=== PATIENT | female | born 1980 | race Caucasian/White ===

== ENCOUNTER 2017-07-09 12:55 | Emergency (ER) | payer OTHER ==
[2017-07-09 13:03] VITALS: BP 129/89; PULSE 80; TEMP 98.6; BMI 23.8
[2017-07-09] MEDS ORDERED: IBUPROFEN 400 MG TABLET (FP) PO ONE ×2 (13:12→13:22)
--- NOTE | 2017-07-09 13:18 | PDOC ---
History of Present Illness - General Chief Complaint: Injury Stated Complaint: RIGHT FOOT PAIN Time Seen by Provider: 07/09/17 13:04 History Source: Patient Exam Limitations: No Limitations - History of Present Illness Initial Comments: 07/09/17 13:13 37y F no pmhx present with complaint of R foot pain. pt states on saturday, she stubbed her toe walking into furniture. She denies falling, or any other injuries. She noted some mild pain there on saturday and saturday, but worsened alot onsaturday especially as she was walking around and was putting on her shoe. She takes motrin with mild improvement. Pt notes her pain is worse in the 5th toe and radiates proximally to the mid foot. Pt notes edema there sat/sun, but has since resolved no associated numbness/tingling/weakness. no knee pain or ankle pain. Past History - Past Medical History Allergies/Adverse Reactions: Allergies Allergy/AdvReac Type Severity Reaction Status Date / Time No Known Drug Allergies Allergy Verified 07/09/17 12:57 Home Medications: Ambulatory Orders NK [No Known Home Medication] 12/25/15 Anemia: No Asthma: No Cancer: No Cardiac Disorders: No CVA: No COPD: No CHF: No Dementia: No Diabetes: No GI Disorders: No Disorders: No HTN: No Hypercholesterolemia: No Liver Disease: No Seizures: No Thyroid Disease: No - Surgical History Abdominal Surgery: Yes (LIPOSUCTION) Appendectomy: No Cardiac Surgery: No Cholecystectomy: No Lung Surgery: No Neurologic Surgery: No Orthopedic Surgery: No - Suicide/Smoking/Psychosocial Hx Smoking History: Current some day smoker Have you smoked in the past 12 months: Yes Number of Cigarettes Smoked Daily: 1 Information on smoking cessation initiated: Yes 'Breaking Loose' booklet given: 07/09/17 Hx Alcohol Use: (occasional) Drug/Substance Use Hx: No Substance Use Type: None Hx Substance Use Treatment: No Review of Systems - Review of Systems Able to Perform ROS?: Yes Comments:: 07/09/17 13:15 Musculskelatal - +R foot pain no reported back pain, joint swelling skin - no reported bruising, erythema, rash neurological: no reported numbness, focal weakness, tingling, hematologic: no reported anemia, easy bruising, easy bleeding *Physical Exam - Vital Signs Last Vital Signs Temp Pulse Resp BP Pulse Ox 98.6 F 80 16 129/89 99 07/09/17 12:55 07/09/17 12:55 07/09/17 12:55 07/09/17 12:55 07/09/17 12:55 - Physical Exam Comments: 07/09/17 13:16 GENERAL: The patient is awake, alert, and fully oriented, Nontoxic - in no acute distress. EXTREMITIES: R foot exam: , mild tenderness at 4th-5th prox phalynx, no signficant edema/induration, no bruising noted, sensation intact distally, cap refill <2 sec SKIN: no brusing ntoed, Warm, Dry, normal turgor, Medical Decision Making - Medical Decision Making 07/09/17 13:18 will ro fx with xray will give motrin 07/09/17 14:23 pt with fracture of the 5th prox phalynx 07/09/17 15:[address] hanley agree with hard sole shoe and fu within 1 week *DC/Admit/Observation/Transfer Diagnosis at time of Disposition: Foot fracture, right Qualifiers: Encounter type: initial encounter Fracture type: closed Qualified Code(s): S92.901A - Unspecified fracture of right foot, initial encounter for closed fracture - Discharge Dispostion Disposition: HOME Condition at time of disposition: Stable Admit: No - Referrals Referrals: Gaston Mckeon MD [Staff Physician] - - Patient Instructions Printed Discharge Instructions: DI for Foot Fracture Additional Instructions: Return to the emergency department immediately with ANY new, persistent or worsening symptoms. Take ibuprofen or Tylenol as needed for the pain. Wear the hard soled shoe. Minimize any ambulation to improve healing and minimize pain. You MUST call and follow up with orthopedics within 1 week for further evaluation of your symptoms. Results were discussed with you. Please make sure your doctor reviews the results of your emergency evaluation. Print Language: SETS[place] - Post Discharge Activity
== END 2017-07-09 15:38 | disposition home or self-care (01) ==
LOC: FER 12:55
DX: S92.514A Nondisplaced fracture of proximal phalanx of right lesser toe(s), initial encounter for closed fracture (principal); W22.01XA Walked into wall, initial encounter; Y93.89 Activity, other specified; Y92.9 Unspecified place or not applicable; F17.210 Nicotine dependence, cigarettes, uncomplicated
CPT/HCPCS: 73630-TC-RT-FY; 99282-25

== ENCOUNTER 2017-08-14 23:31 | Emergency (ER) | payer OTHER ==
[2017-08-14 23:36] VITALS: BP 129/89; PULSE 88; TEMP 98.2; BMI 22.3
--- NOTE | 2017-08-15 00:06 | PDOC ---
History of Present Illness - General Chief Complaint: Vaginal Bleeding Stated Complaint: VAG BLEED Time Seen by Provider: 08/14/17 23:37 - History of Present Illness Initial Comments: This 37-year-old woman with a history of 1 previous spontaneous and 3 living children presents with LMP 07/04/17 . Patient has had 2 at home urine tests that have been positive (first 2 weeks ago and the second today). She has a one-day history of vaginal bleeding with mild to moderate cramping. She has noticed light bleeding that has been persistent during this time without clots or tissue being passed. She has not had any fever/chills, nausea/vomiting. No history of ectopic pregnancies. No recent acute febrile illnesses Past History - Past Medical History Allergies/Adverse Reactions: Allergies Allergy/AdvReac Type Severity Reaction Status Date / Time No Known Drug Allergies Allergy Verified 07/09/17 12:57 Home Medications: Ambulatory Orders NK [No Known Home Medication] 12/25/15 Anemia: No Asthma: No Cancer: No Cardiac Disorders: No CVA: No COPD: No CHF: No Dementia: No Diabetes: No GI Disorders: No Disorders: No HTN: No Hypercholesterolemia: No Liver Disease: No Seizures: No Thyroid Disease: No - Surgical History Abdominal Surgery: Yes (LIPOSUCTION) Appendectomy: No Cardiac Surgery: No Cholecystectomy: No Lung Surgery: No Neurologic Surgery: No Orthopedic Surgery: No - Suicide/Smoking/Psychosocial Hx Smoking History: Unknown if ever smoked Have you smoked in the past 12 months: Yes Number of Cigarettes Smoked Daily: 5 Information on smoking cessation initiated: Yes 'Breaking Loose' booklet given: 07/09/17 Hx Alcohol Use: No Drug/Substance Use Hx: No Substance Use Type: None Hx Substance Use Treatment: No Review of Systems - Review of Systems Able to Perform ROS?: Yes Comments:: 12 point review of systems is negative except for what is noted in the history of present illness *Physical Exam - Vital Signs Last Vital Signs Temp Pulse Resp BP Pulse Ox 98.2 F 88 14 129/89 99 08/14/17 23:32 08/14/17 23:32 08/14/17 23:32 08/14/17 23:32 08/14/17 23:32 - Physical Exam Comments: GENERAL: Adult female, alert and oriented 3, in no acute distress HEAD: Normal with no signs of trauma. EYES: PERRLA, EOMI, sclera anicteric, conjunctiva clear. ENT: Ears normal, nares patent, oropharynx clear without exudates. Dry mucous membranes. NECK: Normal range of motion, supple without lymphadenopathy, JVD, or masses. LUNGS: Breath sounds equal, clear to auscultation bilaterally. No wheezes, and no crackles. HEART:Regular rate and rhythm, normal S1 and S2 without murmur, rub or gallop. ABDOMEN:.normal bowel sounds mild generalized lower abdominal tenderness without guarding or rebound.No masses No distention. EXTREMITIES: Normal range of motion, no edema. No clubbing or cyanosis. No erythema, or tenderness. NEUROLOGICAL: Cranial nerves II through XII grossly intact. Normal speech. No focal neurological deficits. MUSCULOSKELETAL: Back non-tender to palpation, no CVA tenderness SKIN: Warm, Dry, normal turgor, no rashes or lesions noted. Progress Note - Progress Note Progress Note: PGU is negative Ultrasound performed which showed no IUP visualized; there is small complex left ovarian cyst without torsion or free fluid. Results discussed with the patient and her . Since the is so early, it is hard to visualize intrauterine by ultrasound at this stage. However, because our PGU is negative, it suggests that this is a threatened . She should follow-up with her styrene dehydration reactor operator tomorrow. She should return to the ER if she has severe bleeding, cramping or lightheadedness *DC/Admit/Observation/Transfer Diagnosis at time of Disposition: Threatened in early - Discharge Dispostion Disposition: HOME Condition at time of disposition: Stable - Referrals - Patient Instructions Printed Discharge Instructions: Threatened Additional Instructions: Follow-up with your styrene dehydration reactor operator tomorrow as discussed Return to ER if you have severe pain, lightheadedness or excessive bleeding - Post Discharge Activity
== END 2017-08-15 02:30 | disposition home or self-care (01) ==
LOC: FER 23:31
DX: O26.899 Other specified pregnancy related conditions, unspecified trimester (principal); Z3A.00 Weeks of gestation of pregnancy not specified; O20.0 Threatened abortion
CPT/HCPCS: 76801-TC; 84703; 99283-25

== ENCOUNTER 2017-11-17 01:33 | Emergency (ER) | payer OTHER ==
--- NOTE | 2017-11-17 02:58 | PDOC ---
Attending Attestation - Resident Resident Name: Juan Worley - ED Attending Attestation I have performed the following: I have examined & evaluated the patient, The case was reviewed & discussed with the resident, I agree w/resident's findings & plan, Exceptions are as noted - HPI HPI: 11/18/17 01:00 Ms Saenz presents to the ER for evaluation of laceration She was at a birthday democr[employer] when she accidentally cut her leg on broken glass No other injuries sustained this evening No other complaint of pain Pt has glass in her leg upon arrival to the ER - Physicial Exam PE: 11/17/17 03:11 General Appearance: Nourished. No Apparent Distress Musculoskeletal: No extremity deformities Extremity: 1cm laceration to the medial aspect of the right calf. 2cm laceration with 2 cm deep piece of glass to the medial aspect of the right distal calf. 2+ DP pulses bilaterally. Normal Capillary Refill Integumentary: see above Neurologic: Pt resting on stretcher, moves all extremities - Medical Decision Making 11/18/17 01:02 37 yo F presenting to the ER s/p laceration with glass Foreign body removed Xray does not demonstrate radioopaque foreign body Wound irrigated by Dr Worley Wound loosely re approximated Tetanus UTD Augmentin ordered (pt has no h/o dm, pvd) Follow up for suture removal or signs of infection
[2017-11-17 03:06] VITALS: BMI 25.7
--- NOTE | 2017-11-17 03:13 | PDOC ---
History of Present Illness - General Stated Complaint: CUT ON THE FOOT Time Seen by Provider: 11/17/17 02:21 - History of Present Illness Initial Comments: 11/17/17 03:09 The patient is a 37 year old female with no significant PMH who presents for evaluation of a laceration to her right leg. 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 She denies any other injuries and otherwise denies fevers, chills, SOB, chest pain, nausea, vomiting , or changes with urination or bowel movements. Past History - Past Medical History Allergies/Adverse Reactions: Allergies Allergy/AdvReac Type Severity Reaction Status Date / Time No Known Drug Allergies Allergy Verified 11/17/17 03:05 Home Medications: Ambulatory Orders Amox-Tr/K Cl [Augmentin - 875Mg Tablet] 1 tab PO BID #14 tablet 11/17/17 Anemia: No Asthma: No Cancer: No Cardiac Disorders: No CVA: No COPD: No CHF: No Dementia: No Diabetes: No GI Disorders: No Disorders: No HTN: No Hypercholesterolemia: No Liver Disease: No Seizures: No Thyroid Disease: No - Surgical History Abdominal Surgery: Yes (LIPOSUCTION) Appendectomy: No Cardiac Surgery: No Cholecystectomy: No Lung Surgery: No Neurologic Surgery: No Orthopedic Surgery: No - Suicide/Smoking/Psychosocial Hx Smoking History: Current every day smoker Have you smoked in the past 12 months: Yes Number of Cigarettes Smoked Daily: 10 Information on smoking cessation initiated: No 'Breaking Loose' booklet given: 07/09/17 Hx Alcohol Use: No Drug/Substance Use Hx: No Substance Use Type: None Hx Substance Use Treatment: No Review of Systems - Review of Systems Comments:: 11/17/17 03:11 Constitutional: No fevers, chills, fatigue, malaise HEENT: No Rhinorrhea, nasal congestion, visual changes Cardiovascular: No chest pain, syncope, palpitations, lightheadedness Respiratory: No Cough, SOB, Hemoptysis, Gastrointestinal: No Abdominal pain, Nausea, Vomiting, Constipation, Diarrhea, Melena Genitourinary: No Dysuria, Frequency, Urgency, Hesitancy, Hematuria, Flank pain Musculoskeletal: No Myalgia, arthralgia Skin: Laceration to the right lower extremity. No rashes, itching, bruising, pallor Neurologic: No Headache, Dizziness, Numbness, Weakness, or Tingling Psychiatric: No Hallucinations. No SI or HI *Physical Exam - Vital Signs Last Vital Signs Temp Pulse Resp BP Pulse Ox 98.1 F 88 20 146/72 97 11/17/17 01:45 11/17/17 01:45 11/17/17 01:45 11/17/17 01:45 11/17/17 01:45 - Physical Exam Comments: 11/17/17 03:11 General Appearance: Nourished. No Apparent Distress HEENT: EOMI, BRUNILDA. No Pharyngeal Erythema, Tonsillar Exudate, Tonsillar Erythema Neck: No Cervical Lymphadenopathy Respiratory/Chest: Lungs Clear, Normal Breath Sounds. No Crackles, Rales, Rhonchi, Wheezing Cardiovascular: Regular Rhythm, Regular Rate. No Murmur, Gallops, Rubs Gastrointestinal/Abdominal: Normal Bowel Sounds, Soft. No Guarding, Rebound, Tenderness Musculoskeletal: No CVA Tenderness Extremity: 1cm laceration to the medial aspect of the right calf. 2cm laceration with 2 cm deep piece of glass to the medial aspect of the right distal calf. 2+ DP pulses bilaterally. Normal Capillary Refill Integumentary: Normal Color, Dry, Warm Neurologic: Fully Oriented, Alert, Normal Mood/Affect, Normal Response, Procedures - Laceration/Wound Repair Right Distal Leg Wound Length: to 2.5 cm Wound Explored: clean, no foreign body present Wound's Depth, Shape: superficial, linear Irrigated w/ Saline: Yes Anesthesia: 1% Lidocaine Amount of Anesthetic (ccs): 3 Wound Repaired With: Sutures Suture Size/Type: 4:0, nylon Number of Sutures: 3 Layer Closure: Yes Sterile Dressing Applied: Yes Right Medial Distal Leg Wound Length: to 2.5 cm Wound Explored: foreign body removed Wound's Depth, Shape: superficial, linear Irrigated w/ Saline: Yes Anesthesia: 1% Lidocaine Amount of Anesthetic (ccs): 3 Wound Repaired With: Sutures Suture Size/Type: 4:0, nylon Number of Sutures: 2 Layer Closure: Yes Sterile Dressing Applied: Yes ED Treatment Course - RADIOLOGY Radiology Studies Ordered: Category Date Time Status ANKLE-RIGHT [RAD] Stat Radiology 11/17/17 02:36 Ordered LEG TIB/FIB-RIGHT [RAD] Stat Radiology 11/17/17 02:36 Ordered Medical Decision Making - Medical Decision Making 11/17/17 03:16 The patient is a 37 year old female with no significant PMH who presents for evaluation of a laceration to her right leg. Given the patient's physical exam and history, we will obtain plain films of the patient's lower extremity to evaluate further. The patient's tetanus status is up to date. We sutured the patient's lacerations with 4-0 nylon sutures. Plain films of the patient's leg were unremarkable. We are comfortable discharging the patient home at this time on augmentin and with primary care provider follow up. We discussed proper wound care, the plan, and return precautions with the patient who voiced understanding and is agreeable with the plan. *DC/Admit/Observation/Transfer Diagnosis at time of Disposition: Laceration of lower leg Qualifiers: Encounter type: initial encounter Laterality: right Qualified Code(s): S81.811A - Laceration without foreign body, right lower leg, initial encounter - Discharge Dispostion Disposition: HOME Condition at time of disposition: Stable Decision to Admit order: No - Prescriptions Prescriptions: Amox-Tr/K Cl [Augmentin - 875Mg Tablet] 1 tab PO BID #14 tablet - Referrals Referrals: Deuce Sood [Primary Care Provider] - - Patient Instructions Printed Discharge Instructions: DI for Laceration Repair Additional Instructions: Please return to the ER if you experience concerning or worsening symptoms including worsening pain, fevers, or redness to the area. You had 2 lacerations that were repaired here in the ER. One was repaired with 3 stitches and the other with 2 stitches. You will need to return to the ER or your primary care provider in 7-10 days to have your wound checked and the sutures removed. We have sent a prescription for antibiotics to your pharmacy that you will need to take twice a day for 7 days to help prevent infection. Please make sure you call to schedule a follow up appointment with your primary care provider within 2-3 days to discuss your ER visit and further management of your symptoms. - Post Discharge Activity
[2017-11-17 04:10] VITALS: BP 123/75; PULSE 76; TEMP 98.2
== END 2017-11-17 04:05 | disposition home or self-care (01) ==
LOC: JER 01:33
PROC: 0HCKXZZ Extirpation of Matter from Right Lower Leg Skin, External Approach (ICD-10-PCS; principal; 2017-11-17)
PROC: 0JQN0ZZ Repair Right Lower Leg Subcutaneous Tissue and Fascia, Open Approach (ICD-10-PCS; 2017-11-17)
DX: S81.821A Laceration with foreign body, right lower leg, initial encounter (principal); W25.XXXA Contact with sharp glass, initial encounter; W45.8XXA Other foreign body or object entering through skin, initial encounter; Y93.89 Activity, other specified; Y92.89 Other specified places as the place of occurrence of the external cause; Y99.8 Other external cause status
CPT/HCPCS: 10120-25; 12001; 73590-TC-RT-FY; 73610-TC-RT-FY; 99281-25

== ENCOUNTER 2017-11-28 19:14 | Emergency (ER) | payer OTHER ==
[2017-11-28 19:22] VITALS: BP 119/67; PULSE 92; TEMP 98.2; BMI 22.3
--- NOTE | 2017-11-28 19:23 | PDOC ---
Rapid Medical Evaluation Time Seen by Provider: 11/28/17 19:20 Medical Evaluation: Allergies Allergy/AdvReac Type Severity Reaction Status Date / Time No Known Drug Allergies Allergy Verified 11/17/17 03:05 11/28/17 19:21 I have performed a brief in-person evaluation of this patient. The patient presents with a chief complaint of: suture removal Pertinent physical exam findings: RLE sutures erythematous. No drainage present. Pt given Rx for Augmentin which she did not take. I have ordered the following: nothing The patient will proceed to the ED for further evaluation. Discharge Disposition - Diagnosis Visit for suture removal - Referrals - Patient Instructions - Post Discharge Activity
--- NOTE | 2017-11-28 20:17 | PDOC ---
Suture Removal/Wound Check HPI - History of Present Illness Chief Complaint: Suture/Staple Removal(Here) Stated Complaint: STITCHES REMOVAL Time Seen by Provider: 11/28/17 19:20 History Source: Yes: Patient Exam Limitations: Yes: No Limitations Treated at: [facility] ED Date of Last ED visit: 11/17/17 - Previous ED Treatment Type of procedure performed on last visit: Yes: Laceration Repair Tetanus Immunization: Yes: Up to Date Antibiotics Prescribed: No - Onset of Previous Treatment Timing/Duration/Severity of Onset: reports: Prior to presentation Past History - Past Medical History Allergies/Adverse Reactions: Allergies Allergy/AdvReac Type Severity Reaction Status Date / Time No Known Drug Allergies Allergy Verified 11/28/17 19:22 Home Medications: Ambulatory Orders NK [No Known Home Medication] 11/28/17 Anemia: No Asthma: No Cancer: No Cardiac Disorders: No CVA: No COPD: No CHF: No Dementia: No Diabetes: No GI Disorders: No Disorders: No HTN: No Hypercholesterolemia: No Liver Disease: No Seizures: No Thyroid Disease: No - Surgical History Abdominal Surgery: Yes (LIPOSUCTION) Appendectomy: No Cardiac Surgery: No Cholecystectomy: No Lung Surgery: No Neurologic Surgery: No Orthopedic Surgery: No - Suicide/Smoking/Psychosocial Hx Smoking History: Current some day smoker Have you smoked in the past 12 months: Yes Number of Cigarettes Smoked Daily: 10 Information on smoking cessation initiated: Yes 'Breaking Loose' booklet given: 07/09/17 Hx Alcohol Use: No Drug/Substance Use Hx: No Substance Use Type: None Hx Substance Use Treatment: No Patient Lives Alone: No Lives with/in: spouse/SO Suture Removal/Wound Check PE - Physical Exam Laceration/Wound Check Symptoms: reports: Redness, Discharge Current Severity Level: None Maximum Severity Level: None Pain Localization: None Location of Laceration/Wound: right: Leg *Review of Systems - Review of Systems Able to Perform ROS?: No Constitutional: No: Symptoms Reported Integumentary: Yes: Erythema *Physical Exam - Vital Signs Last Vital Signs Temp Pulse Resp BP Pulse Ox 98.2 F 92 H 18 119/67 98 11/28/17 19:19 11/28/17 19:19 11/28/17 19:19 11/28/17 19:19 11/28/17 19:19 Medical Decision Making - Medical Decision Making 11/28/17 20:19 Removed 5 sutures without difficulty utilizing scissors and forceps. Area surrounding the incision erythematous with mild purulent drainage upon suture removal. Patient will be given Bactrim for coverage since she states this was a laceration sustained from metal on a boat. Patient states is up-to-date on tetanus. *DC/Admit/Observation/Transfer Diagnosis at time of Disposition: Visit for suture removal - Discharge Dispostion Disposition: HOME Condition at time of disposition: Improved - Referrals - Patient Instructions Printed Discharge Instructions: DI for Suture Removal Additional Instructions: Please take antibiotics as prescribed. Please apply warm soaks 4 times a day for 15 minutes of constant heat for the next 2 days. If no improvement of redness over the next 3 days please return to the nearest ED. - Post Discharge Activity
== END 2017-11-28 20:24 | disposition home or self-care (01) ==
LOC: JERFT 19:14
DX: Z48.02 Encounter for removal of sutures (principal)
CPT/HCPCS: 99281-25

== ENCOUNTER 2020-12-01 10:09 | Emergency (ER) | payer OTHER ==
[2020-12-01 10:19] VITALS: BP 118/76; PULSE 94; TEMP 97.6; BMI 32.3
== END 2020-12-01 10:55 | disposition home or self-care (01) ==
LOC: JER 10:09
DX: K64.8 Other hemorrhoids (principal)
CPT/HCPCS: 99283-25

== ENCOUNTER 2021-01-11 12:47 | Emergency (ER) | payer OTHER ==
[2021-01-11 12:53] VITALS: BMI 27.4
[2021-01-11 14:19] LABS: BASO % 1.3 % (0-2.0); EOS % 6.5 % (0-4.5); HEMATOCRIT 26.6 % (32.4-45.2); HEMOGLOBIN 8.3 GM/dL (10.7-15.3); LYMPH % 24.3 % (8-40); MCHC 31.3 g/dl (32.0-36.0); MEAN CELL VOLUME 67.2 fl (80-96); MEAN PLT VOLUME 6.8 fl (7.5-11.1); MONO % 7.5 % (3.8-10.2); NEUT % 60.4 % (42.8-82.8); PLATELET COUNT 568 10^3/uL (134-434); RBC 3.96 M/mm3 (3.60-5.2); RDW 18.2 % (11.6-15.6); WHITE BLOOD COUNT 6.5 K/mm3 (4.0-10.0)
[2021-01-11 14:20] LABS: URINE APPEARANCE CLEAR; URINE BILIRUBIN NEGATIVE (NEGATIVE); URINE COLOR YELLOW; URINE GLUCOSE (UA) NEGATIVE (NEGATIVE); URINE KETONE NEGATIVE (NEGATIVE); URINE LEUK ESTERASE NEGATIVE (NEGATIVE); URINE NITRITE NEGATIVE (NEGATIVE); URINE PROTEIN NEGATIVE (NEGATIVE); URINE UROBILINOGEN 0.2 mg/dL (0.2-1.0)
[2021-01-11 14:24] LABS: HCG,QUALITATIVE URINE Positive
[2021-01-11 14:43] LABS: CALCIUM 8.7 mg/dL (8.5-10.1)
[2021-01-11 14:44] LABS: ALBUMIN 3.8 g/dl (3.4-5.0)
[2021-01-11 14:47] LABS: CREATININE 0.7 mg/dL (0.55-1.3)
[2021-01-11 14:49] LABS: BILIRUBIN,TOTAL 0.3 mg/dL (0.2-1); TOT PROT 7.6 g/dl (6.4-8.2)
[2021-01-11 15:05] LABS: ANISOCYTOSIS 3+; MACROCYTOSIS 1+; TARGET CELLS 1+
[2021-01-11 16:01] VITALS: BP 110/68; PULSE 89; TEMP 98.6
== END 2021-01-11 16:01 | disposition home or self-care (01) ==
LOC: JER 12:47
DX: O20.0 Threatened abortion (principal)
CPT/HCPCS: 36415; 76817-TC; 80053; 81003; 84702; 84703; 85025; 86850; 86900; 86901; 99284-25

== ENCOUNTER 2021-04-04 21:48 | Emergency (ER) | payer OTHER ==
[2021-04-04 22:30] VITALS: BP 111/70; PULSE 84; TEMP 98.6; BMI 26.5
[2021-04-04] MEDS ORDERED: ACETAMINOPHEN 1000 MG/100 ML VIAL IVPB ONE (22:46)
[2021-04-04] MEDS ORDERED: ACETAMINOPHEN INJECTION 100 ML IVPB ONE ×2 (22:50→23:02)
[2021-04-04] MEDS ORDERED: ONDANSETRON 4 MG/2 ML VIAL IVPUSH ONE (22:51)
[2021-04-04] MEDS ORDERED: ONDANSETRON 4 MG/2 ML VIAL ONE (22:56)
[2021-04-04 23:22] LABS: BASO % 0.5 % (0-2.0); EOS % 2.3 % (0-4.5); HEMATOCRIT 27.3 % (32.4-45.2); HEMOGLOBIN 8.7 GM/dL (10.7-15.3); LYMPH % 18.6 % (8-40); MCH 20.7 pg (25.7-33.7); MCHC 31.8 g/dl (32.0-36.0); MEAN CELL VOLUME 65.1 fl (80-96); MEAN PLT VOLUME 7.3 fl (7.5-11.1); MONO % 8.9 % (3.8-10.2); NEUT % 69.7 % (42.8-82.8); PLATELET COUNT 533 10^3/uL (134-434); RDW 20.2 % (11.6-15.6); WHITE BLOOD COUNT 10.6 K/mm3 (4.0-10.0)
[2021-04-04 23:32] LABS: EPI CELLS 11 /uL (0-25.1); HCG,QUALITATIVE URINE Negative; HYALINE CASTS 3 /uL (0-3.1); URINE APPEARANCE CLOUDY; URINE BACTERIA 994 /uL (0-1359); URINE BILIRUBIN NEGATIVE (NEGATIVE); URINE COLOR YELLOW; URINE GLUCOSE (UA) NEGATIVE (NEGATIVE); URINE KETONE NEGATIVE (NEGATIVE); URINE LEUK ESTERASE 3+ (NEGATIVE); URINE NITRITE NEGATIVE (NEGATIVE); URINE PROTEIN 1+ (NEGATIVE); URINE RBC 16 /uL (0-23.9); URINE WBC 839 /uL (0-25.8)
[2021-04-04 23:40] LABS: CHLORIDE 103 mmol/L (98-107); SODIUM 138 mmol/L (136-145)
[2021-04-04 23:45] LABS: ALBUMIN 3.1 g/dl (3.4-5.0); ANION GAP 6 MMOL/L (8-16); BLOOD UREA NITROGEN 8.8 mg/dL (7-18); CO2 30 mmol/L (21-32); GLUCOSE,RANDOM 92 mg/dL (74-106)
[2021-04-04 23:48] LABS: CREATININE 0.7 mg/dL (0.55-1.3); SGOT/AST 25 U/L (15-37); SGPT/ALT 20 U/L (13-61)
[2021-04-04 23:50] LABS: BILIRUBIN,TOTAL 0.2 mg/dL (0.2-1); TOT PROT 7.7 g/dl (6.4-8.2)
[2021-04-04 23:51] LABS: ALK PHOS 93 U/L (45-117)
[2021-04-05] MEDS ORDERED: DOXYCYCLINE HYCLATE 100 MG CAPSULE PO ONE ×2 (00:10→00:16)
[2021-04-05] MEDS ORDERED: cefTRIAXone SODIUM 1 GM VIAL ONE (00:17)
[2021-04-05] MEDS ORDERED: KETOROLAC TROMETHAMINE 30 MG/1 ML VIAL IVPUSH ONE (00:53)
[2021-04-05] MEDS ORDERED: KETOROLAC TROMETHAMINE 30 MG/1 ML VIAL ONE (00:55)
[2021-04-05 03:19] LABS: ANISOCYTOSIS 2+; MACROCYTOSIS 0; PLATELET ESTIMATE INCREASED; ROULEAU 1+
== END 2021-04-05 01:15 | disposition home or self-care (01) ==
LOC: JER 21:48
PROC: 3E0333Z Introduction of Anti-inflammatory into Peripheral Vein, Percutaneous Approach (ICD-10-PCS; principal; 2021-04-04)
PROC: 3E02329 Introduction of Other Anti-infective into Muscle, Percutaneous Approach (ICD-10-PCS; 2021-04-04)
PROC: 3E0333Z Introduction of Anti-inflammatory into Peripheral Vein, Percutaneous Approach (ICD-10-PCS; 2021-04-04)
PROC: 3E033GC Introduction of Other Therapeutic Substance into Peripheral Vein, Percutaneous Approach (ICD-10-PCS; 2021-04-04)
DX: N30.00 Acute cystitis without hematuria (principal); N83.201 Unspecified ovarian cyst, right side
CPT/HCPCS: 36415; 76830-TC; 80053; 81003; 84702; 84703; 85025; 87086; 87491; 87591; 87661; 93005; 93010; 99284-25; J0131

== ENCOUNTER 2021-08-17 12:12 | Emergency (ER) | payer OTHER ==
[2021-08-17 12:20] VITALS: BP 122/70; PULSE 83; TEMP 97.9; BMI 28.7
[2021-08-17 15:42] LABS: BASO % 0.8 % (0-2.0); EOS % 5.4 % (0-4.5); HEMATOCRIT 21.4 % (32.4-45.2); MEAN PLT VOLUME 8.5 fl (7.5-11.1); MONO % 6.3 % (3.8-10.2); NEUT % 55.5 % (42.8-82.8); PLATELET COUNT 648 10^3/uL (134-434); RBC 3.82 M/mm3 (3.60-5.2); RDW 20.7 % (11.6-15.6); WHITE BLOOD COUNT 6.1 K/mm3 (4.0-10.0)
[2021-08-17 15:44] LABS: MCH 15.7 pg (25.7-33.7)
[2021-08-17 15:52] LABS: ALBUMIN 3.8 g/dl (3.4-5.0); BLOOD UREA NITROGEN 15.3 mg/dL (7-18); CALCIUM 9.1 mg/dL (8.5-10.1)
[2021-08-17 15:55] LABS: BILIRUBIN,DIRECT 0.1 mg/dL (0.0-0.2); CREATININE 0.6 mg/dL (0.55-1.3)
[2021-08-17 15:57] LABS: BILIRUBIN,TOTAL 0.7 mg/dL (0.2-1); TOT PROT 7.1 g/dl (6.4-8.2)
[2021-08-17 17:09] LABS: ANISOCYTOSIS 3+; MACROCYTOSIS 1+
[2021-08-17 17:12] LABS: OVALOCYTE 1+
[2021-08-17] MEDS ORDERED: ONDANSETRON 4 MG/2 ML VIAL IVPUSH ONE (17:32)
== END 2021-08-17 17:45 | disposition home or self-care (01) ==
LOC: FER 12:12
DX: O99.011 Anemia complicating pregnancy, first trimester (principal); Z3A.10 10 weeks gestation of pregnancy
CPT/HCPCS: 36415; 76705-TC; 76815; 80053; 81003; 82248; 82977; 83010; 83615; 83690; 85025; 86850; 86900; 86901; 86922; 87086; 99285-25

== ENCOUNTER 2021-09-19 13:13 | Day surgery (SDC) | payer OTHER ==
[2021-09-19 14:33] VITALS: BMI 27.4
[2021-09-19 14:33] LABS: BASO % 1.2 % (0-2.0); EOS % 6.5 % (0-4.5); HEMATOCRIT 31.6 % (32.4-45.2); HEMOGLOBIN 9.9 GM/dL (10.7-15.3); LYMPH % 22.2 % (8-40); MCH 21.4 pg (25.7-33.7); MCHC 31.4 g/dl (32.0-36.0); MEAN CELL VOLUME 68.3 fl (80-96); MEAN PLT VOLUME 8.4 fl (7.5-11.1); MONO % 6.4 % (3.8-10.2); NEUT % 63.7 % (42.8-82.8); PLATELET COUNT 475 10^3/uL (134-434); RBC 4.62 M/mm3 (3.60-5.2); RDW 33.5 % (11.6-15.6); WHITE BLOOD COUNT 6.7 K/mm3 (4.0-10.0)
[2021-09-19 14:41] LABS: INR 0.96 (0.83-1.09)
[2021-09-19 14:58] LABS: ANISOCYTOSIS 2+; MACROCYTOSIS 0
[2021-09-19 15:17] LABS: CALCIUM 9.4 mg/dL (8.5-10.1)
[2021-09-19 15:18] LABS: ALBUMIN 3.6 g/dl (3.4-5.0); BLOOD UREA NITROGEN 8.2 mg/dL (7-18)
[2021-09-19 15:21] LABS: CREATININE 0.7 mg/dL (0.55-1.3)
[2021-09-19 15:23] LABS: BILIRUBIN,TOTAL 0.3 mg/dL (0.2-1); TOT PROT 7.7 g/dl (6.4-8.2)
[2021-09-19] MEDS ORDERED: PROPOFOL 20 ML ONE (17:34)
[2021-09-19] MEDS ORDERED: MIDAZOLAM HCL 2 MG/2 ML SINGLE DOSE VIAL ONE (17:35)
[2021-09-19] MEDS ORDERED: KETOROLAC TROMETHAMINE 30 MG/1 ML VIAL ONE (17:44)
[2021-09-19] MEDS ORDERED: ceFAZolin SODIUM 1 GM VIAL ONE (17:44)
[2021-09-19] MEDS ORDERED: DEXAMETHASONE SOD PHOSPHATE 4 MG/1 ML VIAL ONE (17:44)
[2021-09-19] MEDS ORDERED: ceFAZolin SODIUM 1 GM VIAL IVPB ONE (17:46)
[2021-09-19] MEDS ORDERED: OXYTOCIN 10 UNITS/ML VIAL ONE ×2 (17:53→18:11)
[2021-09-19] MEDS ORDERED: IBUPROFEN 600 MG TABLET (FP) PO PRN (18:24)
[2021-09-19] MEDS ORDERED: ACETAMINOPHEN 325 MG TABLET (FP) PO PRN (18:24)
[2021-09-19] MEDS ORDERED: ONDANSETRON 4 MG/2 ML VIAL IVPUSH PRN (18:25)
[2021-09-19] MEDS ORDERED: METHYLERGONOVINE MALEATE 0.2 MG/1 ML AMP IM ONE (18:26)
[2021-09-19 19:37] VITALS: BP 133/53; PULSE 68; TEMP 98.1
== END 2021-09-19 20:00 | disposition home or self-care (01) ==
LOC: JASU-SURG 13:13
PROVIDERS: ATTEND Obstetrics & Gynecology
PROC: 10D17ZZ Extraction of Products of Conception, Retained, Via Natural or Artificial Opening (ICD-10-PCS; principal; 2021-09-19 16:00)
DX: O02.1 Missed abortion (principal); Z3A.09 9 weeks gestation of pregnancy
CPT/HCPCS: 36415; 80053; 85025; 85610; 86850; 86900; 86901; 88305-TC; 94760; C9803-CS; U0003; U0005

== ENCOUNTER 2021-10-14 17:52 | Inpatient (IN) | payer OTHER ==
[2021-10-14 18:55] LABS: BASO % 0.8 % (0-2.0); EOS % 9.5 % (0-4.5); HEMATOCRIT 13.7 % (32.4-45.2); LYMPH % 27.5 % (8-40); MCH 22.2 pg (25.7-33.7); MCHC 31.5 g/dl (32.0-36.0); MEAN CELL VOLUME 70.4 fl (80-96); MEAN PLT VOLUME 6.5 fl (7.5-11.1); MONO % 7.9 % (3.8-10.2); NEUT % 54.3 % (42.8-82.8); PLATELET COUNT 535 10^3/uL (134-434); RBC 1.95 M/mm3 (3.60-5.2); RDW 24.7 % (11.6-15.6); WHITE BLOOD COUNT 6.6 K/mm3 (4.0-10.0)
[2021-10-14 18:56] LABS: HEMOGLOBIN 4.3 GM/dL (10.7-15.3)
[2021-10-14 19:02] LABS: INR 0.92 (0.83-1.09); PROTHROMBIN TIME (PATIENT) 10.6 SEC (9.7-13.0)
[2021-10-14 19:05] LABS: ACTIVATED PTT 23.1 SECONDS (25.2-36.5)
[2021-10-14 19:08] LABS: ALBUMIN 3.1 g/dl (3.4-5.0); BLOOD UREA NITROGEN 14.6 mg/dL (7-18); CALCIUM 8.6 mg/dL (8.5-10.1); MAGNESIUM 2.2 mg/dL (1.8-2.4)
[2021-10-14 19:12] LABS: CREATININE 0.7 mg/dL (0.55-1.3)
[2021-10-14 19:13] LABS: BILIRUBIN,TOTAL 0.2 mg/dL (0.2-1); TOT PROT 6.2 g/dl (6.4-8.2)
[2021-10-14 20:21] LABS: ANISOCYTOSIS 3+; MACROCYTOSIS 0; TARGET CELLS 3+
[2021-10-15] MEDS: POLYETHYLENE GLYCOL (HEALTHYLAX) 3350 17 GM PACKET PO SCH ×3 (02:08→21:17)
[2021-10-15] MEDS: SENNOSIDES 8.6MG TABLET (FP) PO SCH ×3 (02:08→21:18)
[2021-10-15 03:18] VITALS: BMI 29.5
[2021-10-15 04:12] LABS: BASO % 1.4 % (0-2.0); EOS % 10.7 % (0-4.5); HEMATOCRIT 22.9 % (32.4-45.2); HEMOGLOBIN 7.2 GM/dL (10.7-15.3); LYMPH % 26.9 % (8-40); MCH 24.2 pg (25.7-33.7); MCHC 31.6 g/dl (32.0-36.0); MONO % 9.3 % (3.8-10.2); NEUT % 51.7 % (42.8-82.8); PLATELET COUNT 496 10^3/uL (134-434); RDW 22.4 % (11.6-15.6); RETICULOCYTES 3.63 % (0.5-1.5); WHITE BLOOD COUNT 7.4 K/mm3 (4.0-10.0)
[2021-10-15 04:14] LABS: MEAN CELL VOLUME 76.4 fl (80-96)
[2021-10-15 09:13] LABS: BASO % 0.5 % (0-2.0); EOS % 7.7 % (0-4.5); HEMATOCRIT 24.3 % (32.4-45.2); HEMOGLOBIN 7.8 GM/dL (10.7-15.3); LYMPH % 15.5 % (8-40); MCH 24.5 pg (25.7-33.7); MCHC 32.1 g/dl (32.0-36.0); MEAN CELL VOLUME 76.2 fl (80-96); MEAN PLT VOLUME 7.2 fl (7.5-11.1); MONO % 5.6 % (3.8-10.2); NEUT % 70.7 % (42.8-82.8); PLATELET COUNT 574 10^3/uL (134-434); RBC 3.19 M/mm3 (3.60-5.2); RDW 22.6 % (11.6-15.6); WHITE BLOOD COUNT 10.3 K/mm3 (4.0-10.0)
[2021-10-15 09:15] LABS: CALCIUM 9.2 mg/dL (8.5-10.1)
[2021-10-15 09:16] LABS: ALBUMIN 3.5 g/dl (3.4-5.0); BLOOD UREA NITROGEN 8.2 mg/dL (7-18); MAGNESIUM 2.5 mg/dL (1.8-2.4)
[2021-10-15 09:19] LABS: CREATININE 0.7 mg/dL (0.55-1.3); PHOSPHOROUS 3.3 mg/dL (2.5-4.9)
[2021-10-15 09:21] LABS: BILIRUBIN,TOTAL 1.4 mg/dL (0.2-1); TOT PROT 6.8 g/dl (6.4-8.2)
[2021-10-16] MEDS: SENNOSIDES 8.6MG TABLET (FP) PO SCH (09:30)
[2021-10-16] MEDS: POLYETHYLENE GLYCOL (HEALTHYLAX) 3350 17 GM PACKET PO SCH (09:30)
[2021-10-16 10:52] LABS: CALCIUM 8.8 mg/dL (8.5-10.1)
[2021-10-16 10:54] LABS: ALBUMIN 3.1 g/dl (3.4-5.0)
[2021-10-16 10:57] LABS: CREATININE 0.7 mg/dL (0.55-1.3)
[2021-10-16 10:59] LABS: BILIRUBIN,TOTAL 0.3 mg/dL (0.2-1); TOT PROT 6.4 g/dl (6.4-8.2)
[2021-10-16 11:30] LABS: BASO % 0.7 % (0-2.0); EOS % 7.5 % (0-4.5); HEMATOCRIT 23.2 % (32.4-45.2); HEMOGLOBIN 7.3 GM/dL (10.7-15.3); LYMPH % 18.7 % (8-40); MCH 24.3 pg (25.7-33.7); MCHC 31.6 g/dl (32.0-36.0); MEAN CELL VOLUME 76.8 fl (80-96); MEAN PLT VOLUME 7.4 fl (7.5-11.1); MONO % 5.2 % (3.8-10.2); NEUT % 67.9 % (42.8-82.8); PLATELET COUNT 501 10^3/uL (134-434); RBC 3.01 M/mm3 (3.60-5.2); RDW 23.1 % (11.6-15.6)
[2021-10-16] MEDS ORDERED: SODIUM CHLORIDE IVPB ONE ×2 (11:42→15:00)
[2021-10-16] MEDS ORDERED: FERRIC CARBOXYMALTOSE IVPB ONE (11:42)
[2021-10-16 14:40] VITALS: BP 118/47; PULSE 90; TEMP 98
[2021-10-16] MEDS ORDERED: IRON SUCROSE IVPB ONE (15:00)
[2021-10-16] MEDS ORDERED: DOCUSATE SODIUM 100 MG CAPSULE (FP) PO SCH (22:00)
== END 2021-10-16 18:48 | disposition home or self-care (01) | DRG 663 ==
LOC: JER 17:52 → JERBED 20:40 → J6S 10-15 01:55
PROVIDERS: ADMIT Hospitalist; ATTEND Internal Medicine
PROC: 30233N1 Transfusion of Nonautologous Red Blood Cells into Peripheral Vein, Percutaneous Approach (ICD-10-PCS; principal; 2021-10-14)
PROC: 3E033GC Introduction of Other Therapeutic Substance into Peripheral Vein, Percutaneous Approach (ICD-10-PCS; 2021-10-14)
DX: D62 Acute posthemorrhagic anemia (principal); K64.8 Other hemorrhoids; D50.9 Iron deficiency anemia, unspecified; R00.2 Palpitations; K59.00 Constipation, unspecified
CPT/HCPCS: 0241U-QW; 36415; 36430; 71045-TC-FY; 80053; 82272; 82607; 82728; 82746; 83540; 83550; 83735; 84100; 84484; 84702; 84703; 85025; 85045; 85610; 85730; 86850; 86900; 86901; 86922; 93005; 93010; 99285-25; J1756; P9058

== ENCOUNTER 2022-10-13 13:42 | Inpatient (IN) | payer OTHER ==
[2022-10-13 15:01] LABS: BASO % 2.8 % (0-2.0); EOS % 2.2 % (0-4.5); HEMATOCRIT 14.4 % (32.4-45.2); LYMPH % 20.5 % (8-40); MCHC 29.6 g/dl (32.0-36.0); MEAN CELL VOLUME 58.6 fl (80-96); MONO % 8.6 % (3.8-10.2); NEUT % 65.9 % (42.8-82.8); PLATELET COUNT 462 10^3/uL (134-434); RBC 2.45 M/mm3 (3.60-5.2); RDW 18.3 % (11.6-15.6); WHITE BLOOD COUNT 6.9 K/mm3 (4.0-10.0)
[2022-10-13 15:10] LABS: MCH 17.4 pg (25.7-33.7)
[2022-10-13 15:17] LABS: CALCIUM 8.9 mg/dL (8.5-10.1)
[2022-10-13 15:18] LABS: ALBUMIN 3.6 g/dl (3.4-5.0); BLOOD UREA NITROGEN 9.9 mg/dL (7-18); HEMOGLOBIN 4.3 GM/dL (10.7-15.3)
[2022-10-13 15:21] LABS: CREATININE 0.8 mg/dL (0.55-1.3)
[2022-10-13 15:22] LABS: TOT PROT 6.8 g/dl (6.4-8.2)
[2022-10-13 15:23] LABS: BILIRUBIN,TOTAL 0.3 mg/dL (0.2-1)
[2022-10-13 15:47] LABS: ANISOCYTOSIS 2+; MACROCYTOSIS 0
[2022-10-13] MEDS ORDERED: IRON SUCROSE INJECTION 100 MG in SODIUM CHLORIDE 95 ML IVPB ONE (18:21)
[2022-10-14 02:59] VITALS: BMI 28.0
[2022-10-14] MEDS ORDERED: IRON SUCROSE INJECTION 100 MG in SODIUM CHLORIDE 95 ML IVPB ONE ×2 (04:00→06:00)
[2022-10-14] MEDS ORDERED: DOCUSATE SODIUM 100 MG CAPSULE (FP) PO ONE (05:45)
[2022-10-14 10:53] LABS: BASO % 2.6 % (0-2.0); EOS % 4.3 % (0-4.5); HEMATOCRIT 23.2 % (32.4-45.2); HEMOGLOBIN 7.7 GM/dL (10.7-15.3); MCHC 32.9 g/dl (32.0-36.0); MEAN CELL VOLUME 66.7 fl (80-96); MEAN PLT VOLUME 7.1 fl (7.5-11.1); MONO % 6.7 % (3.8-10.2); NEUT % 66.4 % (42.8-82.8); PLATELET COUNT 427 10^3/uL (134-434); RBC 3.48 M/mm3 (3.60-5.2); RDW 26.6 % (11.6-15.6); WHITE BLOOD COUNT 5.9 K/mm3 (4.0-10.0)
[2022-10-14 11:05] LABS: POTASSIUM 4.1 mmol/L (3.5-5.1)
[2022-10-14 11:14] LABS: BLOOD UREA NITROGEN 10.6 mg/dL (7-18)
[2022-10-14 11:17] LABS: CREATININE 0.6 mg/dL (0.55-1.3)
[2022-10-14] MEDS ORDERED: BISACODYL 5 MG TABLET.DR (FP) PO ONE (22:28)
[2022-10-14] MEDS: PATIENT'S OWN MEDICATION (NON-FORMULARY) (Iron/C/Folate 6/B12/Zn/Stomach [Chromagen Softge PO SCH (23:03)
[2022-10-14] MEDS ORDERED: SODIUM CHLORIDE 1,000 ML IV STA (23:37)
[2022-10-14] MEDS ORDERED: ACETAMINOPHEN 1000 MG/100 ML BAG IVPB ONE (23:52)
[2022-10-15 01:26] LABS: URINE APPEARANCE CLEAR; URINE BILIRUBIN NEGATIVE (NEGATIVE); URINE COLOR YELLOW; URINE GLUCOSE (UA) NEGATIVE (NEGATIVE); URINE KETONE NEGATIVE (NEGATIVE); URINE LEUK ESTERASE NEGATIVE (NEGATIVE); URINE NITRITE NEGATIVE (NEGATIVE); URINE PROTEIN NEGATIVE (NEGATIVE)
[2022-10-15 02:02] LABS: BASO % 1.1 % (0-2.0); EOS % 3.7 % (0-4.5); HEMOGLOBIN 8.5 GM/dL (10.7-15.3); LYMPH % 25.1 % (8-40); MCH 23.3 pg (25.7-33.7); MCHC 32.8 g/dl (32.0-36.0); MEAN CELL VOLUME 70.9 fl (80-96); MEAN PLT VOLUME 6.9 fl (7.5-11.1); MONO % 9.8 % (3.8-10.2); NEUT % 60.3 % (42.8-82.8); PLATELET COUNT 406 10^3/uL (134-434); RBC 3.66 M/mm3 (3.60-5.2); RDW 28.8 % (11.6-15.6); WHITE BLOOD COUNT 8.7 K/mm3 (4.0-10.0)
[2022-10-15 02:10] LABS: INR 0.93 (0.83-1.09); PROTHROMBIN TIME (PATIENT) 10.8 SEC (9.7-13.0)
[2022-10-15 02:12] LABS: ACTIVATED PTT 25.4 SECONDS (25.2-36.5)
[2022-10-15] MEDS ORDERED: SODIUM CHLORIDE 1,000 ML IV SCH (02:15)
[2022-10-15 02:22] LABS: POTASSIUM 3.8 mmol/L (3.5-5.1)
[2022-10-15 02:24] LABS: CALCIUM 8.5 mg/dL (8.5-10.1)
[2022-10-15 02:25] LABS: ALBUMIN 3.3 g/dl (3.4-5.0); BLOOD UREA NITROGEN 10.5 mg/dL (7-18)
[2022-10-15 02:27] LABS: BILIRUBIN,DIRECT 0.3 mg/dL (0.0-0.2)
[2022-10-15 02:28] LABS: CREATININE 0.8 mg/dL (0.55-1.3)
[2022-10-15 02:29] LABS: BILIRUBIN,TOTAL 1.3 mg/dL (0.2-1); TOT PROT 6.7 g/dl (6.4-8.2)
[2022-10-15] MEDS: POLYETHYLENE GLYCOL 3350 255 GM BTL PO ONE ×2 (04:43→12:53)
[2022-10-15 08:57] LABS: BASO % 1.2 % (0-2.0); EOS % 5.5 % (0-4.5); HEMATOCRIT 23.6 % (32.4-45.2); LYMPH % 22.8 % (8-40); MCH 23.9 pg (25.7-33.7); MCHC 33.8 g/dl (32.0-36.0); MEAN CELL VOLUME 70.6 fl (80-96); MONO % 9.5 % (3.8-10.2); PLATELET COUNT 378 10^3/uL (134-434); RBC 3.34 M/mm3 (3.60-5.2); RDW 28.4 % (11.6-15.6)
[2022-10-15] MEDS: PATIENT'S OWN MEDICATION (NON-FORMULARY) (Iron/C/Folate 6/B12/Zn/Stomach [Chromagen Softge PO SCH ×2 (09:36→19:36)
[2022-10-15] MEDS ORDERED: SODIUM PHOSPHATE/NA BIPHOS 133 ML ENEMA RC ONE (12:00)
[2022-10-16 07:24] LABS: HEMOGLOBIN 7.4 GM/dL (10.7-15.3); MCHC 33.6 g/dl (32.0-36.0); MEAN CELL VOLUME 71.5 fl (80-96); MEAN PLT VOLUME 7.8 fl (7.5-11.1); PLATELET COUNT 370 10^3/uL (134-434); RBC 3.08 M/mm3 (3.60-5.2); WHITE BLOOD COUNT 6.1 K/mm3 (4.0-10.0)
[2022-10-16 07:45] LABS: POTASSIUM 3.9 mmol/L (3.5-5.1)
[2022-10-16 07:46] LABS: CALCIUM 8.4 mg/dL (8.5-10.1)
[2022-10-16 07:47] LABS: BLOOD UREA NITROGEN 4.5 mg/dL (7-18)
[2022-10-16 07:50] LABS: CREATININE 0.7 mg/dL (0.55-1.3)
[2022-10-16 07:52] LABS: BILIRUBIN,TOTAL 0.3 mg/dL (0.2-1); TOT PROT 5.9 g/dl (6.4-8.2)
[2022-10-16] MEDS: SODIUM CHLORIDE 1,000 ML IV SCH ×2 (07:53→20:15)
[2022-10-16] MEDS ORDERED: SODIUM PHOSPHATE/NA BIPHOS 133 ML ENEMA RC ONE (12:05)
[2022-10-16] MEDS: SODIUM PHOSPHATE/NA BIPHOS 133 ML ENEMA RC ONE (12:21)
[2022-10-16] MEDS ORDERED: ACETAMINOPHEN WITH CODEINE 300MG/30MG TABLET PO PRN (14:56)
[2022-10-16] MEDS: KETOROLAC TROMETHAMINE 30 MG/1 ML VIAL IVPUSH PRN (16:33)
[2022-10-16] MEDS: FERROUS SO4 325 MG TABLET (FP) PO SCH (17:59)
[2022-10-16] MEDS: HYDROmorphone HCl 2 MG/ML VIAL IVPB PRN (20:20)
[2022-10-16] MEDS: BISACODYL 5 MG TABLET.DR (FP) PO SCH (21:50)
[2022-10-17] MEDS: HYDROmorphone HCl 2 MG/ML VIAL IVPB PRN (05:50)
[2022-10-17 07:07] VITALS: RESP 18
[2022-10-17] MEDS: FERROUS SO4 325 MG TABLET (FP) PO SCH ×3 (09:25→12:19)
[2022-10-17] MEDS: BISACODYL 5 MG TABLET.DR (FP) PO SCH (09:25)
[2022-10-17] MEDS ORDERED: FOLIC ACID 1 MG TABLET (FP) PO SCH (10:00)
[2022-10-17] MEDS ORDERED: ASCORBIC ACID 500 MG TABLET (FP) PO SCH (10:00)
[2022-10-17] MEDS ORDERED: ONDANSETRON 4 MG/2 ML VIAL IVPUSH ONE (10:02)
[2022-10-17] MEDS ORDERED: oxyCODONE HCL 5 MG TABLET PO PRN ×2 (10:18)
[2022-10-17] MEDS: ONDANSETRON 4 MG/2 ML VIAL IVPB SCH ×2 (10:32→15:53)
[2022-10-17 11:30] LABS: BASO % 0.6 % (0-2.0); EOS % 0.8 % (0-4.5); HEMATOCRIT 23.7 % (32.4-45.2); HEMOGLOBIN 7.8 GM/dL (10.7-15.3); LYMPH % 7.4 % (8-40); MCH 23.7 pg (25.7-33.7); MCHC 32.7 g/dl (32.0-36.0); MEAN CELL VOLUME 72.6 fl (80-96); MEAN PLT VOLUME 7.3 fl (7.5-11.1); MONO % 5.3 % (3.8-10.2); NEUT % 85.9 % (42.8-82.8); PLATELET COUNT 426 10^3/uL (134-434); RBC 3.27 M/mm3 (3.60-5.2); RDW 31.1 % (11.6-15.6); WHITE BLOOD COUNT 9.3 K/mm3 (4.0-10.0)
[2022-10-17] MEDS: KETOROLAC TROMETHAMINE 30 MG/1 ML VIAL IVPUSH PRN (13:01)
[2022-10-17 15:45] VITALS: BP 115/75; PULSE 85; TEMP 98.2
[2022-10-18] MEDS ORDERED: ONDANSETRON 4 MG/2 ML VIAL IVPB PRN (14:00)
== END 2022-10-17 16:50 | disposition home or self-care (01) | DRG 226 ==
LOC: JER 13:42 → JERBED 17:14 → J8W 23:12
PROVIDERS: ADMIT Internal Medicine; ATTEND Nurse Practitioner Acute Care
PROC: 30233N1 Transfusion of Nonautologous Red Blood Cells into Peripheral Vein, Percutaneous Approach (ICD-10-PCS; 2022-10-16)
PROC: 06LY8CC Occlusion of Hemorrhoidal Plexus with Extraluminal Device, Via Natural or Artificial Opening Endoscopic (ICD-10-PCS; principal; 2022-10-16 12:45)
DX: K64.3 Fourth degree hemorrhoids (principal); D50.9 Iron deficiency anemia, unspecified; E78.00 Pure hypercholesterolemia, unspecified; K62.5 Hemorrhage of anus and rectum
CPT/HCPCS: 0241U-QW; 36415; 36430; 71045-TC-FY; 80048; 80053; 81003; 82248; 82728; 83010; 83540; 83550; 83615; 84484; 84703; 85025; 85027; 85384; 85610; 85730; 86078; 86850; 86880; 86900; 86901; 86922; 93005; 93010; 99285-25; J1756; P9038; P9058

== ENCOUNTER 2023-11-16 05:19 | Emergency (ER) | payer OTHER ==
[2023-11-16 05:24] VITALS: BMI 27.4
[2023-11-16] MEDS ORDERED: MAG HYDROX/AL HYDROX/SIMETH 30 ML UNIT-DOSE CUP ONE (05:56)
[2023-11-16] MEDS ORDERED: ACETAMINOPHEN INJECTION 100 ML IVPB ONE (05:56)
[2023-11-16] MEDS ORDERED: FAMOTIDINE 20 MG/50 ML IVPB 20 MG/50 ML MG IVPB ONE ×2 (05:56→09:57)
[2023-11-16 06:30] LABS: EOS % 8.6 % (0-4.5); HEMATOCRIT 36.1 % (32.4-45.2); HEMOGLOBIN 11.5 GM/dL (10.7-15.3); LYMPH % 28.3 % (8-40); MCH 26.3 pg (25.7-33.7); MCHC 31.9 g/dl (32.0-36.0); MEAN CELL VOLUME 82.4 fl (80-96); MEAN PLT VOLUME 8.1 fl (7.5-11.1); MONO % 6.7 % (3.8-10.2); NEUT % 55.4 % (42.8-82.8); PLATELET COUNT 41 10^3/uL (134-434); RBC 4.38 M/mm3 (3.60-5.2); RDW 16.5 % (11.6-15.6); WHITE BLOOD COUNT 9.9 K/mm3 (4.0-10.0)
[2023-11-16 06:45] LABS: ALBUMIN 3.7 g/dl (3.4-5.0); BLOOD UREA NITROGEN 15.9 mg/dL (7-18)
[2023-11-16 06:48] LABS: CREATININE 0.9 mg/dL (0.55-1.3)
[2023-11-16 06:50] LABS: BILIRUBIN,TOTAL 0.3 mg/dL (0.2-1)
[2023-11-16] MEDS: ACETAMINOPHEN 1000 MG/100 ML BAG IVPB ONE ×2 (07:03→09:56)
[2023-11-16] MEDS: SODIUM CHLORIDE 0.9% 500 ML INFUS.BAG IV ONE ×2 (07:03→09:56)
[2023-11-16] MEDS: FAMOTIDINE 20 MG/50 ML IVPB 20 MG/50 ML MG IVPB ONE ×2 (07:04→10:24)
[2023-11-16] MEDS: MAG HYDROX/AL HYDROX/SIMETH 30 ML UNIT-DOSE CUP PO ONE (07:04)
[2023-11-16 09:40] LABS: BASO % 1.2 % (0-2.0); EOS % 10.8 % (0-4.5); HEMATOCRIT 35.6 % (32.4-45.2); HEMOGLOBIN 11.9 GM/dL (10.7-15.3); LYMPH % 30.1 % (8-40); MCH 26.4 pg (25.7-33.7); MCHC 33.3 g/dl (32.0-36.0); MEAN PLT VOLUME 7.4 fl (7.5-11.1); MONO % 8.1 % (3.8-10.2); NEUT % 49.8 % (42.8-82.8); PLATELET COUNT 460 10^3/uL (134-434); RDW 16.1 % (11.6-15.6); WHITE BLOOD COUNT 10.9 K/mm3 (4.0-10.0)
[2023-11-16 09:47] LABS: INR 0.88 (0.83-1.09)
[2023-11-16 09:50] LABS: ACTIVATED PTT 30.5 SECONDS (25.2-36.5)
[2023-11-16 10:56] VITALS: BP 104/74; PULSE 78; RESP 18; TEMP 97.6
== END 2023-11-16 11:31 | disposition home or self-care (01) ==
LOC: JER 05:19
PROC: 3E033GC Introduction of Other Therapeutic Substance into Peripheral Vein, Percutaneous Approach (ICD-10-PCS; principal; 2023-11-16)
PROC: 3E033NZ Introduction of Analgesics, Hypnotics, Sedatives into Peripheral Vein, Percutaneous Approach (ICD-10-PCS; 2023-11-16)
DX: R07.89 Other chest pain (principal); M79.661 Pain in right lower leg; R06.02 Shortness of breath
CPT/HCPCS: 36415; 71046-TC-FY; 80053; 80307; 84484; 84703; 85025; 85379; 85610; 85730; 86850; 86900; 86901; 93005; 93010; 99285-25; J0131